=== PATIENT | female | born 1965 | race Caucasian/White ===

== ENCOUNTER 2016-06-24 08:22 | Day surgery (SDC) | payer OTHER ==
[2016-06-22 13:32] LABS: BASOPHILS 0.4 %; BASOPHILS ABSOLUTE 0.03 10/3/uL (0.0-0.16); EOSINOPHILS 0.5 %; EOSINOPHILS ABSOLUTE 0.04 10/3/uL (0.0-0.53); HEMATOCRIT 43.9 % (36.0-48.0); HEMOGLOBIN 14.5 g/dL (12.0-16.0); IMMATURE GRANULOCYTES 0.3 %; IMMATURE GRANULOCYTES ABSOLUTE 0.02 10/3/uL (0.0-0.11); LYMPHOCYTES 22.2 %; LYMPHOCYTES ABSOLUTE 1.68 10/3/uL (0.67-4.30); MEAN CORPUSCULAR HEMOGLOB 30.4 pg (26.0-34.0); MEAN PLATELET VOLUME 10.9 fL (9.2-13.0); MONOCYTES 6.7 %; MONOCYTES ABSOLUTE 0.51 10/3/uL (0.21-1.20); NEUTROPHILS 69.9 %; RBC DISTRIBUTION WIDTH 13.4 % (12.0-16.0); RED CELL COUNT 4.77 10/6/uL (4.0-5.6); WHITE BLOOD CELLS 7.6 10/3/uL (4.5-10.5)
[2016-06-22 13:33] LABS: MANUAL DIFF NO %; PLATELET COUNT 271 10/3/uL (150-400)
[2016-06-22 13:41] LABS: A/G RATIO 1.2 (0.7-1.9); ALKALINE PHOSPHATASE 89 U/L (45-117); BUN (BLOOD UREA NITROGEN) 13 MG/DL (6-23); CALCIUM, SERUM 9.1 MG/DL (8.5-10.4); CHLORIDE, SERUM 104 MMOL/L (96-112); CO2 (CARBON DIOXIDE) 27 MMOL/L (24-34); CREATININE 0.76 MG/DL (0.55-1.02); GFR AFRICAN AMERICAN 107 ML/MIN (>=60); GFR NON AFRICAN AMERICAN 92 ML/MIN (>=60); GLOBULIN 3.3 G/DL (2.5-4.1); GLUCOSE, SERUM 85 MG/DL (60-99); SGPT(ALT) 19 U/L (5-65); SODIUM, SERUM 141 MMOL/L (135-148); TOTAL BILIRUBIN 0.3 MG/DL (0-1.2); TOTAL PROTEIN 7.3 G/DL (6.0-8.5)
[2016-06-22 13:42] LABS: SGOT(AST) 12 U/L (5-40)
--- NOTE | ~2016-06-24 | PREOPHP ---
PreOp History and Physical [place] [id number] [facility]. [address] NAME: LAUREN PEÑA : 69 STATUS : [facility] PAT#: [id number] AGE: 51 ADM/REG DATE : MR#: [id number] REPORT SERV DATE: 06/24/16 DICTATED BY: AIDAN RALPH III DATE: 06/19/16 REPORT STATUS : Draft TRANSCRIBED BY: MODL DATE: 06/19/16 HISTORY OF PRESENT ILLNESS: This 51-year-old female comes to the operating room for wide local resection of malignant melanoma of the back with sentinel lymph node biopsy. The patient was recently found to have a suspicious cutaneous lesion over upper back. She underwent excision of the lesion and it was found to be a malignant melanoma, Carlos level 2, 0.8 mm in thickness. The patient comes now for wide local resection of this malignancy with sentinel lymph node biopsy. The option of not performing a sentinel lymph node biopsy and the pros and cons, advantages and disadvantages of this were discussed with the patient. She wishes to proceed with this as planned. PAST MEDICAL HISTORY: 1. Depression. 2. History of diabetes mellitus. ALLERGIES: SULFA AND DOXYCYCLINE. MEDICATIONS: Alaway, Finacea, Nasacort, Jessica, Effexor, metformin, Aldactone, and vitamin D. PAST SURGICAL HISTORY: Includes breast reduction and oophorectomy. FAMILY HISTORY: Unremarkable. REVIEW OF SYSTEMS: The patient's 14-point review of systems is unremarkable. PHYSICAL EXAMINATION: GENERAL: This is a female, in no acute distress. She is alert and oriented x3. VITAL SIGNS: Blood pressure 110/74, pulse 76, temp 96.8. HEENT: Unremarkable. NECK: Unremarkable. No adenopathy. Supraclavicular areas are normal with no adenopathy. LUNGS: Clear. CARDIAC: Normal. MUSCULOSKELETAL: Both left and right axilla normal with no adenopathy. Over the upper back, the patient has a well-healed midline incision about 4-5 to 6 cm in length. EXTREMITIES: Normal. SKIN: Unremarkable with no suspicious lesions. Groins normal with no adenopathy. ASSESSMENT: 1. A 51-year-old female with biopsy-proven, 0.8 mm in thickness, Carlos level 2, stage T1a malignant melanoma of the back. 2. Depression. 3. Diabetes mellitus. PLAN: The patient comes to the operating room now for a wide local resection of this malignancy with sentinel lymph node biopsy which would likely involve the right axilla or PreOp History and Physical [address] [place] [facility] [place] [address] NAME: LAUREN PEÑA : 69 STATUS : [facility] PAT#: [id number] AGE: 51 ADM/REG DATE : MR#: [id number] REPORT SERV DATE: 06/24/16 DICTATED BY: AIDAN RALPH III DATE: 06/19/16 REPORT STATUS : Draft TRANSCRIBED BY: MICHELLE DATE: 06/19/16 the right neck area. This procedure, the risks, benefits, and alternatives, including but not limited to the risk for bleeding, infection, pain, swelling, scarring, deformity to the areas involved seroma formation, hematoma formation, wound failure, wound dehiscence, cosmetic deformity, nerve injury, chronic paresthesia or pain in the arm, shoulder, or axilla, nerve injury, muscle weakness or paralysis in muscles of upper back or shoulder, chronic lymphedema of the arm, possible need to return for completion axillary dissection, and unforeseen complications including deep venous thrombosis, pulmonary embolus, myocardial infarction, stroke, pneumonia, and , have been explained to the patient prior to surgery. Her questions have been answered. She understands the risks and agrees to surgery as planned. TIMMY/MICHELLE Aidan Ralph III, M.D. / [id number]
--- NOTE | ~2016-06-24 | OP ---
Record Of Operation [facility] [address] [place]. [address] NAME: LAUREN PEÑA : [birth year] STATUS : [facility]#: [id number] AGE: 51 ADM/REG DATE : 06/24/16 MR#: [id number] REPORT SERV DATE: 06/26/16 DICTATED BY: AIDAN RALPH III DATE: 06/25/16 REPORT STATUS : Draft TRANSCRIBED BY: MODTracey DATE: 06/25/16 DATE OF PROCEDURE: 06/24/2016 PREOPERATIVE DIAGNOSIS: Malignant melanoma of the back. POSTOPERATIVE DIAGNOSIS: Malignant melanoma of the back. PROCEDURE: Wide local resection of malignant melanoma of right upper back with scalene fat pad excision from right supraclavicular area and attempted sentinel lymph node biopsy from the right supraclavicular area. SURGEON: Aidan Ralph M.D. ANESTHESIA: General with intubation. COMPLICATIONS: None. ESTIMATED BLOOD LOSS: Less than 5 mL. SPECIMENS: Malignant melanoma from back, and scalene fat pad from right supraclavicular area. DRAINS: None. LAP AND SPONGE COUNT: Correct x3. BRIEF HISTORY: This 51-year-old female presented with a malignant melanoma over the right scapular region. This was a 0.8-mm thickness malignant melanoma. It was felt that wide local resection of this area with sentinel lymph node biopsy was indicated. The sentinel lymph node was indicated on lymphoscintigraphy to be in the right supraclavicular area. These procedures, the risks, benefits, and alternatives, including but not limited to the risk for bleeding, infection, pain, swelling, scarring, deformity to the area, seroma formation, hematoma formation, wound failure, wound dehiscence, nerve injury, chronic paresthesias or pain, numbness, neuralgia, neuroma, nerve injury with muscle weakness or paralysis to the muscles of upper back or shoulder with spinal accessory nerve injury, pneumothorax, injury to any structure in the neck including spinal accessory nerve, and unforeseen complications including deep venous thrombosis, pulmonary embolus, myocardial infarction, stroke, pneumonia, and , were fully and completely explained to the patient and her family prior to surgery. The fact that this was a major operation with risk for major morbidity and mortality has been explained, expected length of recovery was explained. The patient's questions were answered. She clearly understood the risks and agreed to surgery as planned. PROCEDURE IN DETAIL: After being appropriately identified and after discussing the risks of surgery with her again in the preoperative area, and after identifying where the melanoma was located on her back and after lymphoscintigraphy had been performed per Radiology, the Record Of Operation [facility] [address] [place]. [address] NAME: LAUREN PEÑA : 69 STATUS : [facility]#: [id number] AGE: 51 ADM/REG DATE : 06/24/16 MR#: [id number] REPORT SERV DATE: 06/26/16 DICTATED BY: AIDAN RALPH III DATE: 06/25/16 REPORT STATUS : Draft TRANSCRIBED BY: MICHELLE DATE: 06/25/16 patient was taken to the operating room and placed in supine position on a stretcher adjacent to the operating room table. General anesthesia was administered. She was intubated without difficulty. She was then carefully rolled into the prone position on the operating room table. Appropriate pads were placed beneath her extremities and chest. This maneuver was done very carefully and meticulously. The back was prepped and draped sterilely in the usual fashion. After an appropriate "time-out" per JCAHO standards, a vertically oriented elliptical shaped incision was made around the previous biopsy site over the right scapular region. The incision was made so as to have at least a 2-cm margin or greater around the entire circumference of the original lesion. The incision was continued down to the fascia. The entire block of tissue consisting of skin and subcutaneous tissue and fascia was thus resected. It was oriented with sutures and sent for permanent pathology. Using sharp dissection, the skin and subcutaneous tissue around the defect was now mobilized around the entire periphery of the defect. This was mobilized for several centimeters. Hemostasis was assured. The subcutaneous tissue was then closed interrupted 2-0 Vicryl sutures. The skin was closed with running subcuticular 4-0 Monocryl stitch. The incision was injected with 0.5% Marcaine. Dermabond and dressings were applied. The patient was then carefully rolled back into the supine position on the stretcher. She was then placed in the supine position on the operating room table. The right neck and upper chest areas were prepped and draped sterilely in the usual fashion. Using the navigator probe, we directed our attention to the right supraclavicular area. An anterior to posterior incision was made along the lines of Tung at the base of the right neck in the supraclavicular area. The incision was continued through subcutaneous tissue. We identified the spinal accessory nerve in the appropriate location. This was carefully kept in view and not encroached upon or injured. There was a scalene fat pad, which was initially thought to contain the sentinel lymph node. This scalene fat pad was completely resected. On investigating with the navigator probe, there was minimal activity. This fat pad was sent for permanent pathology. We continued our dissection deep into the neck. We were not able to identify a definite sentinel lymph node. There was some activity in the area, but we could not identify a lymph node, which corresponded to the activity. The activity was very minimal and very weak. There were no suspicious lymph nodes or adenopathy in the area. After considerable dissection, it was my judgment that it would not be safe to proceed because of the risk of injury to any structure in the neck including the spinal accessory nerve. I felt that the risk of proceeding was outweighed by potential risk for injury to the structures in the neck. For this reason, we did again remove the fat pad as described, but did not identify a node which had any activity. Again though, there were no suspicious nodes either palpable or visible in this area. The area was irrigated copiously with saline. Hemostasis was assured. The subcutaneous tissue was closed with a running 3-0 Vicryl suture. The skin was closed with running subcuticular 4-0 Monocryl stitch. The incision was injected with 0.5% Marcaine. Dressings were applied. Anesthesia was reversed. The patient was taken to the recovery room in Record Of Operation [address] [place]. [address] NAME: LAUREN PEÑA : 69 STATUS : [facility]#: [id number] AGE: 51 ADM/REG DATE : 06/24/16 MR#: [id number] REPORT SERV DATE: 06/26/16 DICTATED BY: AIDAN RALPH III DATE: 06/25/16 REPORT STATUS : Draft TRANSCRIBED BY: MODL DATE: 06/25/16 stable condition. She tolerated the procedure well. Her family was informed of the results of surgery. The patient was discharged when stable and comfortable. Her family was advised that she should not drive for two to three days after surgery while using narcotics, but she should resume her usual medications and that she should return in two weeks for followup or sooner if any fever, chills, wound drainage, or other problems prior to that time. She was given a prescription for Percocet 7.5 one t.i.d., #12, as needed for pain, which she was advised not to use while driving. TIMMY/MICHELLE Aidan Ralph III, M.D. / [id number] CC: Mar Daigle III, M.D.
[~2016-06-24 08:22] MED LIST: ALAWAY OPH; ALLEGRA180 PO; EFFEX75 PO; ESTRATESHS PO; FINACEA GEL TOP; GLUCOPHAGE1000 MG PO; MAGNEBIND PO; SPIR100 PO; VITAMIN D31000 UNIT PO; VITE PO; VITE1000 PO
== END 2016-06-24 17:24 | disposition home or self-care (01) ==
LOC: SDC 08:22
PROVIDERS: Surgery
PROC: 0JB70ZZ Excision of Back Subcutaneous Tissue and Fascia, Open Approach (ICD-10-PCS; 2016-06-24)
PROC: 07B10ZX Excision of Right Neck Lymphatic, Open Approach, Diagnostic (ICD-10-PCS; principal; 2016-06-24 12:45)
PROC: 0JQ70ZZ Repair Back Subcutaneous Tissue and Fascia, Open Approach (ICD-10-PCS; 2016-06-24 12:45)
DX: C43.59 Malignant melanoma of other part of trunk (principal); K58.9 Irritable bowel syndrome, unspecified; M19.90 Unspecified osteoarthritis, unspecified site; L70.9 Acne, unspecified; F32.9 Major depressive disorder, single episode, unspecified; E11.9 Type 2 diabetes mellitus without complications; Z88.2 Allergy status to sulfonamides; Z88.1 Allergy status to other antibiotic agents
CPT/HCPCS: 36415; 71020; 78195; 80053; 82962; 84703; 85025; 88305; 88307; 88341; 88342; 93005; A9270-GY; A9541; J0690; J2250; J2270; J2405; J2550; J2710; J3010